=== PATIENT | female | born 1985 | race Caucasian/White ===

== ENCOUNTER → 2021-03-19 | Outpatient (REF) ==
--- NOTE | 2021-03-20 06:35 | REP ---
INDICATION: DDD COMPARISON: None. TECHNIQUE: AP and lateral views of the lumbosacral spine. FINDINGS: Chronic appearing grade 1 anterolisthesis at presumed L5-S1 with approximately 6.5 mm anterolisthesis and chronic facet hypertrophy. Mild endplate sclerosis and disc space narrowing is also appreciated. Remainder of the examination is essentially age-appropriate and within normal limits. IMPRESSION: 1. Chronic appearing spondylolysis and spondylolisthesis at L5-S1. <Electronically signed by Justus Corona > 03/20/21 0692
== END ==
LOC: M RAD 12:56
PROVIDERS: ATTEND Internal Medicine
DX: M43.17 Spondylolisthesis, lumbosacral region (principal); M19.90 Unspecified osteoarthritis, unspecified site